=== PATIENT | female | born 1980 | race Caucasian/White ===

== ENCOUNTER 2022-06-11 20:53 | Emergency (ER) | payer OTHER ==
[2022-06-11] MEDS ORDERED: AMOX TR-K CLV1 EAC4 PO (21:38)
[2022-06-11] MEDS ORDERED: NORCO 5-325 TA1 EACH PO (21:38)
== END 2022-06-11 22:19 | disposition home or self-care (01) ==
LOC: FER 20:53
DX: S68.625A Partial traumatic transphalangeal amputation of left ring finger, initial encounter (principal); F17.200 Nicotine dependence, unspecified, uncomplicated; Z23 Encounter for immunization; W31.89XA Contact with other specified machinery, initial encounter; Y92.89 Other specified places as the place of occurrence of the external cause; Y99.0 Civilian activity done for income or pay
CPT/HCPCS: 73130; 90471; 90715